=== PATIENT | female | born 2000 | race Hispanic/Latino ===

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

== ENCOUNTER 2024-07-08 14:24 | Outpatient (CLI) | payer OTHER | END 2024-07-08 14:25 | disposition home or self-care (01) | LOC: ULT 14:24 | PROVIDERS: ATTEND Student in an Organized Health Care Education/Training Program | DX: T83.9XXA Unspecified complication of genitourinary prosthetic device, implant and graft, initial encounter (principal) | CPT/HCPCS: 76856 ==